=== PATIENT | female | born 1955 | race Caucasian/White ===

== ENCOUNTER 2023-11-15 18:08 | Emergency (ER) | payer MEDICARE, OTHER ==
[2023-11-15 18:42] LABS: HEMATOCRIT 30.1 % (37.0-47.0); HEMOGLOBIN 9.6 g/dL (12.0-16.0); IMMATURE GRAN ABSOLUTE AUTO 0.07 K/uL (0.00-0.05); IMMATURE GRAN PERCENT AUTO 0.6 % (0.0-0.4); LYMPHOCYTES ABSOLUTE AUTO 0.64 K/uL (1.00-4.80); LYMPHOCYTES PERCENT AUTO 5.7 % (24.0-44.0); MEAN CORPUSCULAR HEMOGLOBIN 25.1 pg (28.0-32.0); MEAN CORPUSCULAR HGB CONC 31.9 g/dL (32.0-36.0); MEAN CORPUSCULAR VOLUME 78.6 fL (83.0-99.0); MEAN PLATELET VOLUME 7.7 fL (9.4-12.3); MONOCYTES ABSOLUTE AUTO 0.11 K/uL (0.00-0.80); NEUTROPHILS ABSOLUTE AUTO 10.48 K/uL (1.80-7.70); NEUTROPHILS PERCENT AUTO 92.7 % (41.0-71.0); PLATELET COUNT,PLT 441 K/uL (150-400); RED BLOOD CELL COUNT 3.83 M/uL (4.10-5.30)
[2023-11-15 19:09] LABS: A/G RATIO 0.6 (0.9-1.6); ALANINE AMINOTRANSFERASE,ALT 25 IU/L (14-63); ALBUMIN 2.3 g/dL (3.4-5.0); ALKALINE PHOSPHATASE 152 U/L (46-116); ASPARTATE AMNIOTRANSFERASE,AST 22 IU/L (15-37); BILIRUBIN TOTAL 0.2 mg/dL (0.2-1.0); BLOOD UREA NITROGEN,BUN 16 mg/dL (7.0-18.0); CALCIUM 8.5 mg/dL (8.5-10.1); CARBON DIOXIDE,CO2 29.9 mmol/L (21.0-32.0); CHLORIDE,CL 105 mmol/L (98-107); EST CRCL DRUG DOSING (CG) 44.54 mL/min; GLUCOSE RANDOM 197 mg/dL (74-106); PRO B-TYPE NATRIUR PEPT,BNPPRO 450 pg/mL (0-125); SODIUM,NA 140 mmol/L (136-145)
[2023-11-15 19:12] LABS: ESTIMATED GFR 61 mL/min (>60)
== END 2023-11-15 20:23 | disposition home or self-care (01) ==
LOC: MW.ED 18:08
DX: R60.9 Edema, unspecified (principal); Z75.8 Other problems related to medical facilities and other health care; Z79.890 Hormone replacement therapy; Z79.899 Other long term (current) drug therapy
CPT/HCPCS: 36415; 80053; 83880; 84484; 85025; 93005; 93010; 93970; 93970-26; 99282; 99284

== ENCOUNTER 2024-01-20 16:42 | Emergency (ER) | payer MEDICARE ==
[2024-01-20 17:49] LABS: BASOPHILS ABSOLUTE AUTO 0.07 K/uL (0.00-0.20); BASOPHILS PERCENT AUTO 0.6 % (0.0-1.0); EOSINOPHILS ABSOLUTE AUTO 0.05 K/uL (0.00-0.45); EOSINOPHILS PERCENT AUTO 0.4 % (0.0-6.0); HEMATOCRIT 36.1 % (37.0-47.0); HEMOGLOBIN 11.4 g/dL (12.0-16.0); IMMATURE GRAN ABSOLUTE AUTO 0.08 K/uL (0.00-0.05); IMMATURE GRAN PERCENT AUTO 0.7 % (0.0-0.4); LYMPHOCYTES ABSOLUTE AUTO 1.31 K/uL (1.00-4.80); LYMPHOCYTES PERCENT AUTO 10.9 % (24.0-44.0); MEAN CORPUSCULAR HEMOGLOBIN 25.9 pg (28.0-32.0); MEAN CORPUSCULAR HGB CONC 31.6 g/dL (32.0-36.0); MEAN CORPUSCULAR VOLUME 81.9 fL (83.0-99.0); MEAN PLATELET VOLUME 7.8 fL (9.4-12.3); NEUTROPHILS ABSOLUTE AUTO 9.94 K/uL (1.80-7.70); NEUTROPHILS PERCENT AUTO 82.4 % (41.0-71.0); PLATELET COUNT,PLT 605 K/uL (150-400); RED BLOOD CELL COUNT 4.41 M/uL (4.10-5.30); WHITE BLOOD CELL COUNT,WBC 12.05 K/uL (3.9-11.3)
[2024-01-20 17:58] LABS: INR 1.09 (0.86-1.11)
[2024-01-20 18:30] LABS: A/G RATIO 0.7 (0.9-1.6); ALBUMIN 2.7 g/dL (3.4-5.0); BILIRUBIN TOTAL 0.3 mg/dL (0.2-1.0); CALCIUM 9.8 mg/dL (8.5-10.1); CARBON DIOXIDE,CO2 18.8 mmol/L (21.0-32.0); CREATININE 1.3 mg/dL (0.6-1.0); EST CRCL DRUG DOSING (CG) 37.27 mL/min; POTASSIUM,K 2.9 mmol/L (3.5-5.1); PROTEIN TOTAL,TP 6.6 g/dL (6.4-8.2)
[2024-01-20 18:32] LABS: C-REACTIVE PROTEIN 6.73 mg/dL (<0.3); MAGNESIUM 1.8 mg/dL (1.8-2.4)
[2024-01-20] MEDS: Ondansetron 4 MG/2 ML SDV IVPUSH STA (18:33)
[2024-01-20] MEDS: Morphine 4 MG/ML Syringe IVPUSH STA (18:33)
[2024-01-20] MEDS: Sodium Chloride 0.9% 1,000 ML IV STA (19:04)
[2024-01-20] MEDS: Iopamidol 755 MG/ML 500 ML Multipack Bottle IVPUSH ONE (19:14)
[2024-01-20] MEDS ORDERED: Sodium Chloride 0.9% 250 ML IV SCH (19:15)
[2024-01-20] MEDS: Potassium Chloride 10 MEQ in Premix Bag 1 BAG IV STA (19:32)
[2024-01-20] MEDS: Potassium Chloride 10 MEQ in Premix Bag 1 BAG IV ONE (20:52)
[2024-01-20] MEDS: Piperacillin/Tazobactam 4.5 GM in Sodium Chloride 0.9% 100 ML IV STA (22:01)
[2024-01-20] MEDS: Potassium Chloride 20 MEQ Tab.ER PO STA (22:01)
[2024-01-20] MEDS: Heparin Sodium 5,000 Units/ML Vial IVPUSH ONE (22:16)
[2024-01-20] MEDS: Heparin Sodium/0.45% NaCl 25,000 UNITS/250 ML BAG IV STA (22:21)
== END 2024-01-20 22:45 ==
LOC: MW.ED 16:42
DX: K81.0 Acute cholecystitis (principal); K58.9 Irritable bowel syndrome, unspecified; I81 Portal vein thrombosis; E87.6 Hypokalemia; R91.1 Solitary pulmonary nodule; Z75.8 Other problems related to medical facilities and other health care; Z79.899 Other long term (current) drug therapy
CPT/HCPCS: 36415; 71045; 74177; 80053; 83690; 83735; 84484; 85025; 85610; 85652; 85730; 86140; 93005; 96365; 96366; 96367; 96368; 96375; 99285; A9270; J1644; J2270; J2405; J2543; J3480; J3490; J7030; Q9967; 93010